=== PATIENT | male | born 1960 | race Caucasian/White ===

== ENCOUNTER 2021-07-02 11:27 | Emergency (ER) | payer BC ==
[~2021-07-02] VITALS: Ht 170.2 cm; Wt 100.0 kg
[2021-07-02] MEDS ORDERED: ALBUTEROL SULFATE 2.5 MG/3 ML NEBU. NEB ONE (12:00)
[2021-07-02] MEDS ORDERED: IV NORMAL SALINE 1000ML BAG 1,000 ML IV ONE (12:00)
[2021-07-02 12:08] LABS: BASO % 1 % (0-3); EOS % 0 % (0-3); HEMATOCRIT 48.4 % (39.0-53.0); HEMOGLOBIN 16.3 g/dL (13.0-17.5); LYMPH # 0.4 x10^3/uL (1.0-4.8); LYMPH % 7 % (24-48); MEAN CORPUSCULAR HEMOGLOBIN 31 pg (25-35); MEAN CORPUSCULAR HGB CONC 34 g/dL (31-37); MEAN CORPUSCULAR VOLUME 93 fL (79-100); MONO # 1.1 x10^3/uL (0.0-1.1); MONO % 18 % (0-9); NEUT # 4.6 x10^3/uL (1.8-7.7); NEUT % 75 % (31-73); PLATELET COUNT 155 x10^3/uL (140-400); RED BLOOD COUNT 5.24 x10^6/uL (4.30-5.70); RED CELL DISTRIBUTION WIDTH 14.1 % (11.5-14.5); WHITE BLOOD COUNT 6.1 x10^3/uL (4.0-11.0)
--- NOTE | 2021-07-02 12:11 | RAD ---
EXAM: CHEST 1 VIEW History: Cough, congestion COMPARISON: 08/24/2020 TECHNIQUE: Single portable radiograph of the chest FINDINGS: Mild cardiomegaly. Mild bibasilar lung airspace opacities likely atelectasis or infiltrate s. The costophrenic sulci are clear and well demarcated. IMPRESSION: Mild bibasilar lung airspace opacities likely atelectasis or infiltrates. Follow-up to resolution. Electronically signed by: Sander Holland MD (07/02/2021 12:09 PM) [id number]
[2021-07-02 12:13] LABS: CALCIUM 7.8 mg/dL (8.5-10.1); CREATININE 1.4 mg/dL (0.7-1.3); GFR 52.1; POTASSIUM 4.1 mmol/L (3.5-5.1)
[2021-07-02 12:18] LABS: ALBUMIN 3.6 g/dL (3.4-5.0); ALBUMIN/GLOBULIN RATIO 0.9 (1.0-1.7); TOTAL BILIRUBIN 0.5 mg/dL (0.2-1.0); TOTAL PROTEIN 7.5 g/dL (6.4-8.2)
[2021-07-02 12:20] LABS: INFLUENZA A PATIENT NEGATIVE (NEGATIVE); INFLUENZA B PATIENT NEGATIVE (NEGATIVE)
--- NOTE | 2021-07-02 12:47 | PHYS DOC ---
Past Medical History Past Medical History: Hypertension Additional Past Medical Histor: Chronic back pain Past Surgical History: Other Additional Past Surgical Histo: Back surgery Smoking Status: Current Every Day Smoker Alcohol Use: Heavy General Adult EDM: Chief Complaint: HYPERTENSION HPI: HPI: Patient is a 60 year old male with history of HTN, smoking who presents with 3 days of cough, congestion, chills, nausea, headache, mild shortness of breath. He recently returned from a camping trip in [facility]. No known sick or Covid contacts. He believes he received the [employer] vaccine. No booster. Denies chest pain. No lower extremity edema. Has had diarrhea. No bloody stools. No abdominal pain. Review of Systems: Review of Systems: Constitutional: Reports objective fever and chills Eyes: Denies change in visual acuity. [] HENT: Reports nasal congestion and cough Respiratory: Reports cough and mild shortness of breath Cardiovascular: Denies chest pain or edema. [] GI: Denies abdominal pain, nausea, vomiting, bloody stools or diarrhea. [] : Denies dysuria. [] Musculoskeletal: Reports diffuse muscle aches. Denies back pain or joint pain. [] Integument: Denies rash. [] Neurologic: Denies headache, focal weakness or sensory changes. [] Endocrine: Denies polyuria or polydipsia. [] Lymphatic: Denies swollen glands. [] Psychiatric: Denies depression or anxiety. [] Heart Score: C/O Chest Pain: No Current Medications: Current Medications Medications (Trade) Dose Ordered Sig/Chip Start Time Stop Time Status Last Admin Dose Admin Albuterol Sulfate (Ventolin Neb Soln) 2.5 mg 1X ONCE 07/02/21 12:00 07/02/21 12:01 DC Sodium Chloride 1,000 ml @ 1,000 mls/hr 1X ONCE 07/02/21 12:00 07/02/21 12:59 07/02/21 12:00 1,000 MLS/HR Allergies: Allergies: Allergies Coded Allergies Type Severity Reaction Last Updated Verified No Known Drug Allergies 07/02/21 No Physical Exam: PE: Constitutional: Appears fatigued, but no acute distress. Nontoxic-appearing. HENT: Normocephalic, atraumatic Neck: Normal range of motion, no tenderness, supple, no stridor. [] Cardiovascular:Heart rate regular rhythm, no murmur [] Lungs & Thorax: Normal work of breathing. Bilateral expiratory wheezes. Crackles. Abdomen: Bowel sounds normal, soft, no tenderness, no masses, no pulsatile masses. [] Skin: Warm, dry, no erythema, no rash. [] Back: No tenderness, no CVA tenderness. [] Extremities: No tenderness, no cyanosis, no clubbing, ROM intact, no edema. [] Neurologic: Alert and oriented X 3, normal motor function, normal sensory function, no focal deficits noted. [] Current Patient Data: Labs: Laboratory Tests Test 07/02/21 11:45 White Blood Count 6.1 x10^3/uL (4.0-11.0) Red Blood Count 5.24 x10^6/uL (4.30-5.70) Hemoglobin 16.3 g/dL (13.0-17.5) Hematocrit 48.4 % (39.0-53.0) Mean Corpuscular Volume 93 fL (79-100) Mean Corpuscular Hemoglobin 31 pg (25-35) Mean Corpuscular Hemoglobin Concent 34 g/dL (31-37) Red Cell Distribution Width 14.1 % (11.5-14.5) Platelet Count 155 x10^3/uL (140-400) Neutrophils (%) (Auto) 75 % (31-73) H Lymphocytes (%) (Auto) 7 % (24-48) L Monocytes (%) (Auto) 18 % (0-9) H Eosinophils (%) (Auto) 0 % (0-3) Basophils (%) (Auto) 1 % (0-3) Neutrophils # (Auto) 4.6 x10^3/uL (1.8-7.7) Lymphocytes # (Auto) 0.4 x10^3/uL (1.0-4.8) L Monocytes # (Auto) 1.1 x10^3/uL (0.0-1.1) Eosinophils # (Auto) 0.0 x10^3/uL (0.0-0.7) Basophils # (Auto) 0.0 x10^3/uL (0.0-0.2) Sodium Level 134 mmol/L (136-145) L Potassium Level 4.1 mmol/L (3.5-5.1) Chloride Level 95 mmol/L (98-107) L Carbon Dioxide Level 26 mmol/L (21-32) Anion Gap 13 (6-14) Blood Urea Nitrogen 24 mg/dL (8-26) Creatinine 1.4 mg/dL (0.7-1.3) H Estimated GFR (Cockcroft-Gault) 52.1 BUN/Creatinine Ratio 17 (6-20) Glucose Level 113 mg/dL (70-99) H Calcium Level 7.8 mg/dL (8.5-10.1) L Total Bilirubin 0.5 mg/dL (0.2-1.0) Aspartate Amino Transferase (AST) 74 U/L (15-37) H Alanine Aminotransferase (ALT) 106 U/L (16-63) H Alkaline Phosphatase 62 U/L (46-116) Troponin I High Sensitivity 15 ng/L (4-75) Total Protein 7.5 g/dL (6.4-8.2) Albumin 3.6 g/dL (3.4-5.0) Albumin/Globulin Ratio 0.9 (1.0-1.7) L Influenza Type A Antigen Negative (NEGATIVE) Influenza Type B Antigen Negative (NEGATIVE) SARS-CoV-2 Antigen (Rapid) Negative (NEGATIVE) Laboratory Tests 07/02/21 11:45 Laboratory Tests 07/02/21 11:45 Vital Signs: Vital Signs Date Time Temp Pulse Resp B/P (MAP) Pulse Ox O2 Delivery O2 Flow Rate FiO2 07/02/21 11:30 98.7 89 18 185/106 (132) 93 Room Air 98.7 EKG: EKG: Sinus rhythm. Rate 76. Normal axis. QTc 46. ? Minimal ST depression in lead II and aVF. No ST elevation. [] Radiology/Procedures: Radiology/Procedures: [] Impression: [facility] [address] [place], [place] [id number] IMAGING REPORT Signed PATIENT: JIMY SIMMONS ACCOUNT: [id number] : 1960 LOCATION: ER AGE: 60 SEX: M EXAM STATUS: REG ER ORD. PHYSICIAN: DANYEL CHAN MD REASON: cough, congestion, covid pui PROCEDURE: CHEST AP ONLY EXAM: CHEST 1 VIEW History: Cough, congestion COMPARISON: 08/24/2020 TECHNIQUE: Single portable radiograph of the chest FINDINGS: Mild cardiomegaly. Mild bibasilar lung airspace opacities likely atelectasis or infiltrates. The costophrenic sulci are clear and well demarcated. IMPRESSION: Mild bibasilar lung airspace opacities likely atelectasis or infiltrates. Follow-up to resolution. Electronically signed by: Sander Holland MD (07/02/2021 12:09 PM) [id number] DICTATED and SIGNED BY: SANDER HOLLAND MD DATE: 07/02/21 [id number] 0 Course & Med Decision Making: Course & Med Decision Making Pertinent Labs and Imaging studies reviewed. (See chart for details) Patient 60-year-old male with history of HTN, smoking who presents with 3 days of sinus congestion, cough, subjective fever/chills, headache, and muscle aches. On arrival is afebrile, hemodynamically stable, satting 93+ percent on room air. Normal work of breathing. Does have scattered expiratory wheezes, but refuses nebulizer treatment --stating he has an albuterol inhaler at home. Chest x-ray shows bibasilar patchy opacities concerning for pneumonia in this clinical setting. Rapid Covid and influenza are negative. Covid PCR pending. Given comorbidities will treat with monotherapy with Levaquin. Creatinine 1.4, no baseline for comparison. Does seem slightly dry on exam. 1 L of IV fluids given. Feel he should be safe for discharge with ongoing Levaquin and strict return precautions. Su Disclaimer: Su Disclaimer: This electronic medical record was generated, in whole or in part, using a voice recognition dictation system. Departure Departure Impression: Primary Impression: Pneumonia Disposition: HOME / SELF CARE / HOMELESS Condition: STABLE Referrals: Laquita LOPEZ MD (PCP) Patient Instructions: Pneumonia, Adult Additional Instructions: Your chest x-ray showed some changes concerning for pneumonia. Your Covid test so far is negative, so we will treat this with antibiotics. If your Covid PCR test returns positive you should receive a call to let you know. If you test positive for COVID please follow the following instructions. Isolation: -You will need to isolate for a minimum of 5 days from symptom onset. -At 5 days please take a rapid COVID test, if positive continue to isolate for a full 10 days duration -At the 10-day chalo (or 5-day chalo with a negative COVID test), you must also have at least 3 days of no fever/chills, and improving symptoms before you end your isolation. -If you are continuing to be symptomatic or having high fevers you need to continue your isolation until you meet the above requirements. Monitoring: -Please buy a home pulse oximeter. These can be purchased [id number] most pharmacies, or on [employer]. -Check your oxygen levels once a day. If they are persistently below 90% please return to the emergency department. -If you develop chest pain or worsening shortness of breath please return to the emergency department. For fever/body aches tylenol and ibuprofen are best used on a schedule. Please alternate between the two. -Tylenol 1000 mg every 6 hours (do not exceed 4000 mg in one day) -Ibuprofen 400-600 mg every 6 hours. Take with food. Do not take for more than 1 week. DANYEL CHAN MD Jul 02, 2021 12:47
[2021-07-02 13:37] LABS: BILIRUBIN,URINE NEGATIVE (NEG); CLARITY,URINE CLEAR; COLOR,URINE YELLOW; NITRITE,URINE NEGATIVE (NEG); PROTEIN,URINE 100 mg/dL (NEG-TRACE); UROBILINOGEN,URINE 0.2 mg/dL (0.2 mg/dL)
[2021-07-02 13:41] VITALS: BP 187/113
[2021-07-02 13:46] LABS: BACTERIA,URINE 0 /HPF (0-FEW); HYALINE CASTS, URINE FEW /HPF; RBC,URINE 0 /HPF (0-2)
--- NOTE | 2021-07-02 13:47 | EKG ---
[facility] [address] [place] [address] Test Date: 2021-07-02 Test Time: 11:42:12 Pat Name: JIMY SIMMONS Department: Room: Gender: M Project Buyer: : 1960 Requested By: DANYEL CHAN Order Number: [id number] Reading MD: Maxim Waddell Measurements Intervals [place] Rate: 76 P: 65 [place]: 174 QRS: 4 QRSD: 86 T: 43 QT: 428 QTc: 486 Interpretive Statements SINUS RHYTHM PROLONGED QT Electronically Signed On 07-03-2021 11:42:32 TOLL LINE INSPECTOR by Maxim Waddell
[2021-07-02] MEDS ORDERED: LEVO750T5 PO (14:03)
--- NOTE | 2021-07-03 11:24 | NUR ---
IP: Attempted to contact pt concerning covid results. No answer, left a voicemail to return the call. Addendum: 07/03/21 at 1137 by MEET ARGUELLO RN Pt returned the call. Informed pt of negative covid test. Pt verbalized understanding.
== END 2021-07-02 14:08 | disposition home or self-care (01) ==
LOC: ER 11:27
DX: J18.9 Pneumonia, unspecified organism (principal); I10 Essential (primary) hypertension; Z20.822 Contact with and (suspected) exposure to COVID-19; G89.29 Other chronic pain; F17.200 Nicotine dependence, unspecified, uncomplicated
CPT/HCPCS: 36415; 71045; 80053; 81001; 84484; 85025; 87428; 93005; 96360; 99285; J7030; U0003; U0005

== ENCOUNTER 2021-07-11 13:32 | Emergency (ER) | payer BC ==
[~2021-07-11] VITALS: Ht 172.7 cm; Wt 81.8 kg
[~2021-07-11 13:32] MED LIST: LEVO750T5 PO
--- NOTE | 2021-07-11 14:39 | RAD ---
EXAM: Right shoulder, 3 views. HISTORY: Pain. COMPARISON: None. FINDINGS: 3 views of the right shoulder obtained. There is no acute fracture, dislocation or subluxat ion. There is mild glenohumeral joint spurring. IMPRESSION: Mild glenohumeral osteoarthritis. No acute osseous finding. Electronically signed by: Madeline Doss MD (07/11/2021 2:36 PM) [id number]
[2021-07-11 14:56] LABS: BASO # 0.1 x10^3/uL (0.0-0.2); BASO % 1 % (0-3); EOS # 0.2 x10^3/uL (0.0-0.7); EOS % 1 % (0-3); HEMATOCRIT 49.4 % (39.0-53.0); LYMPH # 1.6 x10^3/uL (1.0-4.8); LYMPH % 12 % (24-48); MEAN CORPUSCULAR HEMOGLOBIN 32 pg (25-35); MEAN CORPUSCULAR HGB CONC 35 g/dL (31-37); MEAN CORPUSCULAR VOLUME 91 fL (79-100); MONO # 1.1 x10^3/uL (0.0-1.1); MONO % 9 % (0-9); NEUT # 10.2 x10^3/uL (1.8-7.7); NEUT % 77 % (31-73); PLATELET COUNT 221 x10^3/uL (140-400); RED CELL DISTRIBUTION WIDTH 13.9 % (11.5-14.5); WHITE BLOOD COUNT 13.2 x10^3/uL (4.0-11.0)
[2021-07-11 15:09] LABS: CALCIUM 9.2 mg/dL (8.5-10.1); GFR 76.7; POTASSIUM 3.4 mmol/L (3.5-5.1)
[2021-07-11 15:14] LABS: ALBUMIN 3.9 g/dL (3.4-5.0); ALBUMIN/GLOBULIN RATIO 0.9 (1.0-1.7); MAGNESIUM 2.2 mg/dL (1.8-2.4); TOTAL BILIRUBIN 0.9 mg/dL (0.2-1.0); TOTAL PROTEIN 8.1 g/dL (6.4-8.2)
[2021-07-11] MEDS ORDERED: IOHEXOL 350 MG/ML 100 ML VIAL. IV ONE (15:15)
[2021-07-11] MEDS ORDERED: CONTRAST GIVEN. MC PRN (15:30)
[2021-07-11] MEDS ORDERED: MORPHINE SULFATE 2 MG/ML INJ. IVP ONE (15:45)
--- NOTE | 2021-07-11 15:49 | RAD ---
Clinical Indication: Shortness of breath. PE protocol axial CTA images of the chest was performed after the administration of 100 cc Omnipaque 300. Coronal and sagittal MIP images of the pulmonary arteries are available. Comparison: Chest x-ray from 07/02/2019. Findings: The partially visualized thyroid gland is normal in appearance. The heart and great vessels are normal. There is minimal calcific atherosclerotic disease of the grea t vessels. Incidental note is made of a separate origin of the left vertebral artery from the aortic arch. No mediastinal, hilar, or axillary adenopathy is seen. No pneumothorax, effusion, focal consolidation, air space or interstitial disease is seen. The major filling defects are identified in the pulmonary arteries. The contrast bolus is somewhat in appropriately timed to evaluate the subsegmental pulmonary arteries. Liver is hypodense relative to the spleen. The bony structures are unremarkable. Impression: 1. No evidence of main or segmental pulmonary emboli. Subsegmental emboli cannot be detectability eduardo ropriate timing of the contrast bolus. 2. Unremarkable CT examination of the chest. 3. Hepatic steatosis. Exposure: One or more of the following individualized dose reduction techniques were utilized for thi s examination: 1. Automated exposure control 2. Adjustment of the mA and/or kV according to patient size 3. Use of iterative reconstruction technique Electronically signed by: David Peguero MD (07/11/2021 3:46 PM) [facility]
[2021-07-11] MEDS ORDERED: LABETALOL 20 MG/4 ML DISP.SYRIN. IVP ONE (16:00)
[2021-07-11 17:11] VITALS: BP 216/141
--- NOTE | 2021-07-11 17:31 | PHYS DOC ---
Past Medical History Past Medical History: COPD, Hypertension Additional Past Medical Histor: Chronic back pain Past Surgical History: No Surgical History Additional Past Surgical Histo: Back surgery Smoking Status: Current Every Day Smoker Alcohol Use: Heavy General Adult EDM: Chief Complaint: SHORTNESS OF BREATH HPI: HPI: Patient is a 60 year old male with history of COPD, current smoker, hypertension, presenting to the ED today complaining of shortness of breath, cough, congestion, symptoms have been going on since July 02, 2021. Patient states he was seen in the ED at that point and was diagnosed with pneumonia and put on Levaquin. He states he finished his Levaquin but his symptoms are still going on. Denies any fever. He is also complaining of 10 out of 10 right shoulder pain, pain around the right scapula and right mid back, symptoms began this morning when he woke up. He states he has a previous right shoulder injury that he has never followed up with a specialist. Patient denies any chest pain. He states his shoulder pain is worse on range of motion. He is requesting something to relieve his pain. Review of Systems: Review of Systems: Constitutional: Denies fever or chills. [] Eyes: Denies change in visual acuity. [] HENT: Denies nasal congestion or sore throat. [] Respiratory: Reports cough and shortness of breath Cardiovascular: Denies chest pain or edema. [] GI: Denies abdominal pain, nausea, vomiting, bloody stools or diarrhea. [] : Denies dysuria. [] Musculoskeletal: Reports right shoulder and right mid back Integument: Denies rash. [] Neurologic: Denies headache, focal weakness or sensory changes. [] Psychiatric: Denies depression or anxiety. [] Heart Score: C/O Chest Pain: N/A Risk Factors: Risk Factors: DM, Current or recent (<one month) smoker, HTN, HLP, family history of CAD, obesity. Risk Scores: Score 0 - 3: 2.5% MACE over next 6 weeks - Discharge Home Score 4 - 6: 20.3% MACE over next 6 weeks - Admit for Clinical Observation Score 7 - 10: 72.7% MACE over next 6 weeks - Early Invasive Strategies Current Medications: Current Medications Medications (Trade) Dose Ordered Sig/Chip Start Time Stop Time Status Last Admin Dose Admin Info (CONTRAST GIVEN -- Rx MONITORING) 1 each PRN DAILY PRN 07/11/21 15:30 07/11/21 17:27 DC Iohexol (Omnipaque 350 Mg/ml) 100 ml 1X ONCE 07/11/21 15:15 07/11/21 15:17 DC 07/11/21 15:28 100 ML Labetalol HCl (Normodyne Iv Push) 10 mg 1X ONCE 07/11/21 16:00 07/11/21 16:01 DC 07/11/21 16:43 10 MG Morphine Sulfate (Morphine Sulfate) 2 mg 1X ONCE 07/11/21 15:45 07/11/21 15:46 DC 07/11/21 15:58 2 MG Allergies: Allergies: Allergies Coded Allergies Type Severity Reaction Last Updated Verified No Known Drug Allergies 07/11/21 No Physical Exam: PE: Constitutional: Well developed, well nourished, no acute distress, non-toxic appearance. [] HENT: Normocephalic, atraumatic, bilateral external ears normal, oropharynx moist, no oral exudates, nose normal. [] Eyes: PERRLA, EOMI, conjunctiva normal, no discharge. [] Neck: Normal range of motion, no tenderness, supple, no stridor. [] Cardiovascular:Heart rate regular rhythm, no murmur [] Lungs & Thorax: Bilateral breath sounds clear to auscultation [] Abdomen: Bowel sounds normal, soft, no tenderness, no masses, no pulsatile masses. [] Skin: Warm, dry, no erythema, no rash. [] Back: No tenderness, no CVA tenderness. [] Extremities: No tenderness, no cyanosis, no clubbing, ROM intact, no edema. [] Neurologic: Alert and oriented X 3, normal motor function, normal sensory function, no focal deficits noted. [] Psychologic: Affect normal, judgement normal, mood normal. [] Current Patient Data: Labs: Laboratory Tests Test 07/11/21 14:43 White Blood Count 13.2 x10^3/uL (4.0-11.0) H Red Blood Count 5.40 x10^6/uL (4.30-5.70) Hemoglobin 17.0 g/dL (13.0-17.5) Hematocrit 49.4 % (39.0-53.0) Mean Corpuscular Volume 91 fL (79-100) Mean Corpuscular Hemoglobin 32 pg (25-35) Mean Corpuscular Hemoglobin Concent 35 g/dL (31-37) Red Cell Distribution Width 13.9 % (11.5-14.5) Platelet Count 221 x10^3/uL (140-400) Neutrophils (%) (Auto) 77 % (31-73) H Lymphocytes (%) (Auto) 12 % (24-48) L Monocytes (%) (Auto) 9 % (0-9) Eosinophils (%) (Auto) 1 % (0-3) Basophils (%) (Auto) 1 % (0-3) Neutrophils # (Auto) 10.2 x10^3/uL (1.8-7.7) H Lymphocytes # (Auto) 1.6 x10^3/uL (1.0-4.8) Monocytes # (Auto) 1.1 x10^3/uL (0.0-1.1) Eosinophils # (Auto) 0.2 x10^3/uL (0.0-0.7) Basophils # (Auto) 0.1 x10^3/uL (0.0-0.2) Sodium Level 140 mmol/L (136-145) Potassium Level 3.4 mmol/L (3.5-5.1) L Chloride Level 99 mmol/L (98-107) Carbon Dioxide Level 29 mmol/L (21-32) Anion Gap 12 (6-14) Blood Urea Nitrogen 17 mg/dL (8-26) Creatinine 1.0 mg/dL (0.7-1.3) Estimated GFR (Cockcroft-Gault) 76.7 BUN/Creatinine Ratio 17 (6-20) Glucose Level 120 mg/dL (70-99) H Calcium Level 9.2 mg/dL (8.5-10.1) Magnesium Level 2.2 mg/dL (1.8-2.4) Total Bilirubin 0.9 mg/dL (0.2-1.0) Aspartate Amino Transferase (AST) 40 U/L (15-37) H Alanine Aminotransferase (ALT) 69 U/L (16-63) H Alkaline Phosphatase 71 U/L (46-116) Troponin I High Sensitivity 14 ng/L (4-75) NF-Uif-N-Type Natriuretic Peptide 1259 pg/mL (0-124) H Total Protein 8.1 g/dL (6.4-8.2) Albumin 3.9 g/dL (3.4-5.0) Albumin/Globulin Ratio 0.9 (1.0-1.7) L Thyroid Stimulating Hormone (TSH) 1.403 uIU/mL (0.358-3.74) Laboratory Tests 07/11/21 14:43 Laboratory Tests 07/11/21 14:43 Vital Signs: Vital Signs Date Time Temp Pulse Resp B/P (MAP) Pulse Ox O2 Delivery O2 Flow Rate FiO2 07/11/21 17:11 96 216/141 (166) 98 Room Air 07/11/21 13:54 98.4 26 98.4 EKG: EKG: [] Radiology/Procedures: Radiology/Procedures: []PROCEDURE: SHOULDER 2+V RIGHT EXAM: Right shoulder, 3 views. HISTORY: Pain. COMPARISON: None. FINDINGS: 3 views of the right shoulder obtained. There is no acute fracture, dislocation or subluxation. There is mild glenohumeral joint spurring. IMPRESSION: Mild glenohumeral osteoarthritis. No acute osseous finding. Electronically signed by: Madeline Keane MD (07/11/2021 2:36 PM) [id number] DICTATED and SIGNED BY: MADELINE KEANE MD DATE: 07/11/21 [id number] PROCEDURE: CT ANGIOGRAPHY CHEST Clinical Indication: Shortness of breath. PE protocol axial CTA images of the chest was performed after the administration of 100 cc Omnipaque 300. Coronal and sagittal MIP images of the pulmonary arteries are available. Comparison: Chest x-ray from 07/02/2019. Findings: The partially visualized thyroid gland is normal in appearance. The heart and great vessels are normal. There is minimal calcific atherosclerotic disease of the great vessels. Incidental note is made of a separate origin of the left vertebral artery from the aortic arch. No mediastinal, hilar, or axillary adenopathy is seen. No pneumothorax, effusion, focal consolidation, air space or interstitial disease is seen. The major filling defects are identified in the pulmonary arteries. The contrast bolus is somewhat inappropriately timed to evaluate the subsegmental pulmonary arteries. Liver is hypodense relative to the spleen. The bony structures are unremarkable. Impression: 1. No evidence of main or segmental pulmonary emboli. Subsegmental emboli cannot be detectability appropriate timing of the contrast bolus. 2. Unremarkable CT examination of the chest. 3. Hepatic steatosis. Exposure: One or more of the following individualized dose reduction techniques were utilized for this examination: 1. Automated exposure control 2. Adjustment of the mA and/or kV according to patient size 3. Use of iterative reconstruction technique Electronically signed by: David Peguero MD (07/11/2021 3:46 PM) [facility] DICTATED and SIGNED BY: DAVID PEGUERO MD DATE: 07/11/21 [id number] Course & Med Decision Making: Course & Med Decision Making Pertinent Labs and Imaging studies reviewed. (See chart for details) This is a 60-year-old male patient presented to the ED today complaining of cough, shortness of breath, congestion, symptoms have been going on since July 03, 2021, he was diagnosed with pneumonia on that day and sent home on Levaquin which he completed. He states symptoms are not improving. Also compl aining of right shoulder pain and right mid back pain that began today. Right shoulder x-rays were noted for DJD of the right glomerular CTA chest was negative for any acute findings CBC with a WBC of 13.2, CMP with AST of 40, ALT of 69, BNP 1259. Vitals on arrival to the ED temperature 98.4, heart rate 112, respiration 20 on room air, O2 sats 93 to 94%, blood pressure 200/136, patient stated he has history of hypertension and has been out of some of his blood pressure medicines. His blood pressure went up to 236/146 heart rate of 95, labetalol was given to patient Patient eloped from the ED Nursing staff report patient has been complaining about multiple things including blood pressure cuff, O2 sat sitting on his finger now he cannot use his Phone. Dragon Disclaimer: [employer] Disclaimer: This electronic medical record was generated, in whole or in part, using a voice recognition dictation system. Departure Departure Impression: Primary Impression: Shoulder pain Qualified Codes: M25.511 - Pain in right shoulder Additional Impressions: Accelerated hypertension Shortness of breath Smoker Disposition: LEFT AGAINST MEDICAL ADVICE Condition: STABLE Referrals: Laquita LOPEZ MD (PCP) ALYSIA LLAMAS APRN Jul 11, 2021 17:31
== END 2021-07-11 17:27 | disposition home or self-care (01) ==
LOC: ER 13:32
DX: M25.511 Pain in right shoulder (principal); R06.02 Shortness of breath; G89.29 Other chronic pain; I10 Essential (primary) hypertension; J44.9 Chronic obstructive pulmonary disease, unspecified; F17.200 Nicotine dependence, unspecified, uncomplicated
CPT/HCPCS: 36415; 71275; 73030; 80053; 83735; 83880; 84443; 84484; 85025; 96374; 96375; 99285; J2270; J3490; Q9967

== ENCOUNTER 2021-07-18 15:16 | Inpatient (IN) | payer BC ==
[~2021-07-18] VITALS: Ht 170.2 cm; Wt 87.8 kg
[2021-07-18] MEDS ORDERED: LABETALOL 20 MG/4 ML DISP.SYRIN. IVP ONE ×2 (16:00→17:30)
[2021-07-18] MEDS ORDERED: IV NORMAL SALINE 1000ML BAG 1,000 ML IV ONE (16:00)
[2021-07-18 16:23] LABS: BASO % 0 % (0-3); EOS % 0 % (0-3); HEMATOCRIT 49.9 % (39.0-53.0); HEMOGLOBIN 17.1 g/dL (13.0-17.5); LYMPH # 0.2 x10^3/uL (1.0-4.8); LYMPH % 2 % (24-48); MEAN CORPUSCULAR HEMOGLOBIN 32 pg (25-35); MEAN CORPUSCULAR HGB CONC 34 g/dL (31-37); MEAN CORPUSCULAR VOLUME 92 fL (79-100); MONO # 0.2 x10^3/uL (0.0-1.1); MONO % 2 % (0-9); NEUT # 10.3 x10^3/uL (1.8-7.7); NEUT % 96 % (31-73); PLATELET COUNT 218 x10^3/uL (140-400); RED BLOOD COUNT 5.42 x10^6/uL (4.30-5.70); WHITE BLOOD COUNT 10.7 x10^3/uL (4.0-11.0)
--- NOTE | 2021-07-18 16:25 | PHYS DOC ---
Past Medical History Past Medical History: COPD, Hypertension Additional Past Medical Histor: Chronic back pain Past Surgical History: Other Additional Past Surgical Histo: Back surgery Smoking Status: Current Every Day Smoker Additional Information: 1 ppd x 40 years Alcohol Use: Heavy General Adult EDM: Chief Complaint: NAUSEA/VOMITING/DIARRHEA HPI: HPI: Patient is a 60 year old M who presents with right shoulder pain. Patient was recently seen in the ED on 07/02 for pneumonia and put on Levaquin. He was in the ED again on 07/11 for ongoing shortness of breath, cough, and congestion with new complaint of 10/10 Right shoulder pain. Chart review of previous ED visits show that patient BP was in SBP 200-230s and DBP 130-1240s and was given labetalol. Patient reported running out of anti-hypertensive medications. Patient eloped from ED on 07/11. Today, patient still complains of ongoing productive cough and shortness of breath. Patient also complains of headache and seeing spots of light. He denies blurred vision. Patient also reported previous episode of nausea and vomiting. Presently he does not have nausea or vomiting. Patient also denies chest pain and abdominal pain. Patient also reports ongoing right shoulder pain. Review of Systems: Review of Systems: Constitutional: Denies fever or chills. Eyes: Denies redness or eye pain. reports seeing spots of light. HENT: Denies nasal congestion or sore throat. Reports headache. Respiratory: Denies cough or shortness of breath. Cardiovascular: Denies chest pain or palpitations. GI: Denies abdominal pain, nausea, or vomiting. : Denies dysuria or hematuria. Musculoskeletal: Denies back pain or joint pain. Reports right shoulder pain that radiates to the neck. Integument: Denies rash or skin lesions. Neurologic: Denies headache, focal weakness or sensory changes. Complete systems were reviewed and found to be within normal limits, except as documented in this note. Heart Score: C/O Chest Pain: No Current Medications: Current Medications Medications (Trade) Dose Ordered Sig/Chip Start Time Stop Time Status Last Admin Dose Admin Labetalol HCl (Normodyne Iv Push) 10 mg 1X ONCE 07/18/21 16:00 07/18/21 16:01 DC Sodium Chloride 1,000 ml @ 1,000 mls/hr 1X ONCE 07/18/21 16:00 07/18/21 16:59 Allergies: Allergies: Allergies Coded Allergies Type Severity Reaction Last Updated Verified No Known Drug Allergies 07/11/21 No Physical Exam: PE: Constitutional: Well developed, well nourished, moderate distress, non-toxic appearance. HENT: Normocephalic, atraumatic. Eyes: PERRL, EOMI, conjunctiva normal, no discharge. Neck: Normal range of motion, no tenderness, supple. Lungs & Thorax: No respiratory distress, equal chest rise and fall. Abdomen: Soft, no tenderness. Skin: Warm, dry, no erythema, no rash. Back: No tenderness, no CVA tenderness. Extremities: No tenderness, ROM intact, no edema. Unable to tolerate shoulder exam. Neurologic: Alert and oriented X 3, normal motor function, normal sensory function, no focal deficits noted. Psychologic: Affect normal, judgment normal. Current Patient Data: Vital Signs: Vital Signs Date Time Temp Pulse Resp B/P (MAP) Pulse Ox O2 Delivery O2 Flow Rate FiO2 07/18/21 15:29 99.2 118 22 202/132 (155) 97 Room Air 99.2 EKG: EKG: @1542: NSR @ 115 bpm. QRS: 86 ms. QT/QTc: 346/481 ms. @1605: NSR @ 50 bpm. QRS: 94 ms. QT/QTc: 420/382 ms. Radiology/Procedures: Radiology/Procedures: PROCEDURE: CT HEAD WO CONTRAST EXAMINATION: CT HEAD/BRAIN WO CLINICAL HISTORY: Headache, hypertension. TECHNIQUE: Serial axial images without IV contrast were obtained from the vertex to the foramen magnum. CT Dose Reduction Employed: One or more of the following individualized dose reduction techniques were utilized for this examination: 1. Automated exposure control 2. Adjustment of the mA and/or kV according to patient size 3. Use of iterative reconstruction technique. COMPARISON: None FINDINGS: Acute Change: No evidence of an acute infarct or other acute parenchymal pro cess. Hemorrhage: No evidence of acute intracranial hemorrhage. Mass Lesion/Mass Effect: No evidence of intracranial mass or extraaxial fluid collection. No significant mass effect. Chronic Change: Scattered patchy foci of hypoattenuation in the supratentorial white matter, nonspecific but likely represents mild microvascular ischemia. Atherosclerotic calcification of the intracranial portion of the bilateral internal carotid arteries. Parenchyma: Mild to moderate generalized volume loss. Ventricles: Ventricular enlargement concordant with degree of parenchymal volume loss. Paranasal Sinuses and Skull Base: Paranasal sinus postoperative changes with mild secretions in the ethmoid and right maxillary sinuses. Visualized skull base and soft tissues unremarkable. IMPRESSION: No evidence of acute intracranial abnormality. Electronically signed by: Eitan Banegas DO (07/18/2021 5:22 PM) [id number] Course & Med Decision Making: Course & Med Decision Making Pertinent Labs and Imaging studies reviewed. (See chart for details) Patient presents with n/v/headache. Patient also has ongoing productive cough and shortness of breath since 07/02/2021 when he was diagnosed with pneumonia and subsequently completed course of Levaquin. On arrival to ED, BP was 213/133 and HR of 116. Creatinine of 1.2 and BUN of 21. Creatinine kinase wnl. Troponin negative x1. BNP [pending]. Head CT w/o contrast shows no acute intracranial abnormality. Patient was given 1 L bolus NS, ketorolac x1, and labetalol x2. Repeat blood pressure reading SBP 200s and DBP 130s. Patient requiring admission for further evaluation and treatment. Discussed with Dr. Marlow (hospitalist) who is in agreement with admission. Discussed findings and plan with patient, who acknowledges understanding and agreement. Su Disclaimer: Su Disclaimer: This electronic medical record was generated, in whole or in part, using a voice recognition dictation system. Departure Departure Impression: Primary Impression: Hypertensive urgency Additional Impression: Intractable nausea and vomiting Disposition: ADMITTED INPATIENT Admitting Physician: HUMA (Ele) Condition: STABLE Referrals: Laquita LOPEZ MD (PCP) Critical Care Time Critical care time was 30 minutes which includes time at bedside, spent in discussion of patient's care with specialists and/or family members, with interpretation of laboratory and/or radiological studies and is exclusive of procedures. ANDREINA LERMA DO Jul 18, 2021 16:25
[2021-07-18 16:44] LABS: CALCIUM 8.7 mg/dL (8.5-10.1); CREATININE 1.2 mg/dL (0.7-1.3); GFR 62.2; POTASSIUM 3.6 mmol/L (3.5-5.1)
[2021-07-18] MEDS ORDERED: KETOROLAC 15 MG/ML VIAL. IVP ONE (16:45)
[2021-07-18 16:51] LABS: CREATINE KINASE 58 U/L (39-308)
[2021-07-18 16:53] LABS: ALBUMIN 3.9 g/dL (3.4-5.0); ALBUMIN/GLOBULIN RATIO 0.8 (1.0-1.7); MAGNESIUM 1.9 mg/dL (1.8-2.4); TOTAL BILIRUBIN 0.7 mg/dL (0.2-1.0); TOTAL PROTEIN 8.7 g/dL (6.4-8.2)
--- NOTE | 2021-07-18 17:24 | RAD ---
EXAMINATION: CT HEAD/BRAIN WO CLINICAL HISTORY: Headache, hypertension. TECHNIQUE: Serial axial images without IV contrast were obtained from the vertex to the foramen magnu m. CT Dose Reduction Employed: One or more of the following individualized dose reduction techniques wer e utilized for this examination: 1. Automated exposure control 2. Adjustment of the mA and/or kV ac cording to patient size 3. Use of iterative reconstruction technique. COMPARISON: None FINDINGS: Acute Change: No evidence of an acute infarct or other acute parenchymal process. Hemorrhage: No evidence of acute intracranial hemorrhage. Mass Lesion/Mass Effect: No evidence of intracranial mass or extraaxial fluid collection. No signific ant mass effect. Chronic Change: Scattered patchy foci of hypoattenuation in the supratentorial white matter, nonspeci fic but likely represents mild microvascular ischemia. Atherosclerotic calcification of the intracran ial portion of the bilateral internal carotid arteries. Parenchyma: Mild to moderate generalized volume loss. Ventricles: Ventricular enlargement concordant with degree of parenchymal volume loss. Paranasal Sinuses and Skull Base: Paranasal sinus postoperative changes with mild secretions in the e thmoid and right maxillary sinuses. Visualized skull base and soft tissues unremarkable. IMPRESSION: No evidence of acute intracranial abnormality. Electronically signed by: Eitan Banegas DO (07/18/2021 5:22 PM) [id number]
[2021-07-18] MEDS ORDERED: ONDANSETRON PF 4 MG/2 ML VIAL. ONE (17:38)
[2021-07-18] MEDS ORDERED: ONDANSETRON PF 4 MG/2 ML VIAL. IVP ONE (17:45)
[2021-07-18] MEDS ORDERED: ONDANSETRON PF 4 MG/2 ML VIAL. IVP PRN (18:15)
[2021-07-18] MEDS ORDERED: ACETAMINOPHEN 500 MG TABLET PO ONE (20:15)
[2021-07-18 20:45] VITALS: BP 156/102
[2021-07-18 20:48] LABS: INFLUENZA A PATIENT NEGATIVE (NEGATIVE); INFLUENZA B PATIENT NEGATIVE (NEGATIVE)
[2021-07-18] MEDS ORDERED: AMLO-187 PO (22:38)
[2021-07-18] MEDS ORDERED: ALBU2.5V5 NEB (22:38)
[2021-07-18] MEDS ORDERED: HYDR-2767 PO (22:38)
[2021-07-18] MEDS ORDERED: FLUT1BLS2 HHN (22:38)
[2021-07-18] MEDS ORDERED: VORT10TA PO (22:38)
[2021-07-18] MEDS ORDERED: BENA40TA74 PO (22:38)
[2021-07-18] MEDS: LABETALOL 20 MG/4 ML DISP.SYRIN. IVP PRN (22:51)
[2021-07-18 23:16] VITALS: BP 171/106
--- NOTE | 2021-07-19 00:14 | HP ---
DATE OF SERVICE: 07/18/2021 ADMIT DATE: 07/18/2021 CHIEF COMPLAINT: Nausea, vomiting, diarrhea. HISTORY OF PRESENT ILLNESS: The patient is a pleasant 60-year-old male who presented to the ER with nausea, vomiting, diarrhea. He also had some shoulder pain, was in the ER, they noticed that his pressure was in the 200s. He has recently been treated for pneumonia on 07/02. He also seems to have a slight acute on chronic cough. He also had a slight temperature while here in the ER. I discussed the case with ER physician. We are going to admit the patient and get his pressures down and rule out COVID-19. PAST MEDICAL HISTORY: Noncompliance, COPD, hypertension, tobacco abuse, chronic back pain, back surgery. ALLERGIES: None. FAMILY HISTORY: Diabetes. SOCIAL HISTORY: He drinks socially. He smokes heavily. He has a girlfriend. He is here and seems to be good support for him. Her name is Jeannette. MEDICATIONS: Reviewed. Please refer to the MRAD. REVIEW OF SYSTEMS: GENERAL: No history of weight change, weakness or fevers. SKIN: No bruising, hair changes or rashes. EYES: No blurred, double or loss of vision. NOSE AND THROAT: No history of nosebleeds, hoarseness or sore throat. HEART: No history of palpitations, chest pain or shortness of breath on exertion. LUNGS: Denies cough, hemoptysis, wheezing or shortness of breath. GASTROINTESTINAL: Denies changes in appetite, nausea, vomiting, diarrhea or constipation. GENITOURINARY: No history of frequency, urgency, hesitancy or nocturia. NEUROLOGIC: Denies history of numbness, tingling, tremor or weakness. PSYCHIATRIC: No history of panic, anxiety or depression. ENDOCRINE: No history of heat or cold intolerance, polyuria or polydipsia. EXTREMITIES: Denies muscle weakness, joint pain, pain on walking or stiffness. PHYSICAL EXAMINATION: VITAL SIGNS: His blood pressure was 211/115. GENERAL: No apparent distress. Alert and oriented. HEENT: Normal cephalic atraumatic, external auditory canals are patent EYES: Extraocular muscles are intact, pupils are equally round and reactive to light and accommodation MUSKULOSKELETAL: Well developed, well nourished, good range of motion ENDOCRINE: No thyromegaly was palpated LYMPHATICS: No cervical chain or axillary nodes were noted HEMATOPOIETIC: No bruising NECK: Supple, no JVD, no thyromegaly was noted. LUNGS: Clear to auscultation in all lung lars[place] without rhonchi or wheezing. HEART: RRR, S1, S2 present. Peripheral pulses intact, no obvious murmurs were noted. ABDOMEN: Soft, nontender. Positive bowel sounds no organomegaly, normal bowel sounds. EXTREMITIES: Without any cyanosis, clubbing, or edema. Pedal pulses intact, Homans sign is negative. NEUROLOGIC: Normal speech, normal tone. A and O x3, moves all extremities, no obvious focal deficits. PSYCHIATRIC: Normal affect, normal mood. Stable. SKIN: No ulcerations or rashes, good skin turgor, no jaundice. VASCULAR: Good capillary refill, neurovascular bundle appears to be intact. LABORATORY DATA: Hematology is normal. Electrolytes are normal. COVID testing is negative. ASSESSMENT AND PLAN: Hypertensive urgency. The patient will be admitted. We will use p.r.n. labetalol, start his home meds. Deep venous thrombosis prophylaxis. Full code. Hope to discharge in the morning if stable. MARIBETH/PEARL/JUAN DR: MARIBETH/edwina TID: [id number]
[2021-07-19] MEDS ORDERED: ACETAMINOPHEN 500 MG TABLET PO PRN (01:30)
[2021-07-19] MEDS ORDERED: ALBUTEROL SULFATE 2.5 MG/3 ML NEBU. NEB PRN (01:30)
[2021-07-19] MEDS ORDERED: HYDROcodone/APAP 10/325 1 TAB TABLET PO PRN (01:30)
[2021-07-19 01:55] VITALS: BP 165/99
[2021-07-19 03:45] VITALS: BP 158/110
--- NOTE | 2021-07-19 05:50 | EKG ---
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
[2021-07-19 07:00] VITALS: BP 180/122
[2021-07-19] MEDS ORDERED: ALBUTEROL SULFATE 2.5 MG/3 ML NEBU. NEB SCH (08:00)
[2021-07-19] MEDS ORDERED: BUDESONIDE 0.5 MG/2 ML NEBU. NEB SCH (08:00)
[2021-07-19] MEDS ORDERED: NON FORMULARY ITEM (Vortioxetine Hydrobromide (Trintellix) 1 TAB) PO SCH (09:00)
[2021-07-19] MEDS ORDERED: LISINOPRIL 20 MG TABLET PO SCH (09:00)
[2021-07-19] MEDS ORDERED: METO-239 PO (09:48)
--- NOTE | 2021-07-19 09:53 | PDOC3 ---
[facility]-Discharge Summary Date of Admission: Date of Admission: Jul 18, 2021 Date of Discharge: Date of Discharge: Jul 19, 2021 Admission Diagnosis: Problems: (1) Hypertensive urgency Hospital Course: Hospital Course: The patient is a pleasant 60-year-old male who presented to the ER with nausea, vomiting, diarrhea. He also had some shoulder pain, was in the ER, they noticed that his pressure was in the 200s. He has recently been treated for pneumonia on 07/02. He also seems to have a slight acute on chronic cough. He also had a slight temperature while here in the ER. I discussed the case with ER physician. We are going to admit the patient and get his pressures down and rule out COVID-19. 07/19 Patient evaluate examined at bedside. Symptomatically feeling much better overall. Blood pressure little elevated still we will add on Toprol-XL to blood pressure regimen. Will discharge after that dose pending he does okay. Greater than 30 minutes spent on discharge. 19 minutes advance care plan. Disposition: Disposition/Orders: D/C to Home Activity: Activity: Resume previous activity Diet: Diet: Cardiac Medications: Home Meds Active Scripts Metoprolol Succinate (METOPROLOL SUCCINATE ( XL )) 25 Mg Tab.er.24h, 25 MG PO DA CL for htn for 30 Days, #30 TAB.SR Prov:TASIA GRANADO MD 07/19/21 Reported Medications Amlodipine Besylate (AMLODIPINE BESYLATE) 10 Mg Tablet, 1 TAB PO DAILY for hypertension 07/18/21 Albuterol Sulfate (ALBUTEROL SULFATE NEB SOLN) 2.5 Mg/3 Ml Vial.neb, 1 INH NEB PRN QID for asthma 07/18/21 Fluticasone/Vilanterol (Breo Ellipta 200-25 Mcg INH) 1 Each Blst.w.dev, 1 INHALER HHN DAILY for asthma 07/18/21 Vortioxetine Hydrobromide (TRINTELLIX) 10 Mg Tablet, 1 TAB PO DAILY for depression 07/18/21 Hydrocodone/Acetaminophen (Hydrocodone-Acetamin 10-325 mg) 1 Each Tablet, 2 TAB PO PRN Q6HRS for pain 07/18/21 Benazepril Hcl (BENAZEPRIL HCL) 40 Mg Tablet, 1 TAB PO DAILY for hypertension 07/18/21 Scheduled Albuterol Sulfate (Albuterol Sulfate Neb Soln), 1 INH NEB PRN QID, (Reported) Amlodipine Besylate (Amlodipine Besylate), 1 TAB PO DAILY, (Reported) Benazepril Hcl (Benazepril Hcl), 1 TAB PO DAILY, (Reported) Fluticasone/Vilanterol (Breo Ellipta 200-25 Mcg INH), 1 INHALER HHN DAILY, (Reported) Hydrocodone/Acetaminophen (Hydrocodone-Acetamin 10-325 mg), 2 TAB PO PRN Q6HRS, (Reported) Metoprolol Succinate (Metoprolol Succinate ( Xl )), 25 MG PO DAILY Vortioxetine Hydrobromide (Trintellix), 1 TAB PO DAILY, (Reported) Justicifation of Admission Dx: Justifications for Admission: Justification of Admission Dx: Yes (hypertensive urgency) TASIA GRANADO MD Jul 19, 2021 09:53
[2021-07-19] MEDS ORDERED: METOPROLOL SUCC 24HR ER 25 MG TAB.ER.24H. PO SCH (10:00)
--- NOTE | 2021-07-19 10:36 | NUR ---
SW following. Discussed with RN, pt from home, room air, cardiac diet, independent, COVID-19 negative. Discharge order for home with self care. RN advised no SW needs.
[2021-07-19 10:52] VITALS: BP 183/108
[2021-07-19] MEDS: LABETALOL 20 MG/4 ML DISP.SYRIN. IVP PRN (10:52)
--- NOTE | 2021-07-19 11:31 | NUR ---
Discharge Note: PT DISCHARGED HOME WITH SELF CARE. PT LEFT FACILITY VIA PRIVATE VEHICLE WITH FRIEND AT 1120. PT STABLE AND ALERT UPON DISCHARGE. PT PIV REMOVED FROM R AC WITHOUT COMPLICATIONS, BANDAGE APPLIED. PT EDUCATED ABOUT DISCHARGE INSTRUCTIONS, DISCHARGE MEDICATIONS, AND FOLLOW-UP CARE INSTRUCTIONS. PT EDUCATED TO WATCH BP CLOSELY WITH NEW BP MEDICATIONS GETTING STARTED. NO CONCERNS VOICED AT THIS TIME. PT LEFT WITH ALL PERSONAL BELONGINGS. FAIZA SIMMONS Discharge instructions and discharge home medications reviewed with Patient and a copy given. All questions have been answered and understanding verbalized.
== END 2021-07-19 11:20 | disposition home or self-care (01) | DRG 305 ==
LOC: ER 15:16 → ED HOLD 18:00 → 5 NORTH 20:43
PROVIDERS: ADMIT Internal Medicine; ATTEND Internal Medicine
DX: I16.0 Hypertensive urgency (principal); J44.9 Chronic obstructive pulmonary disease, unspecified; G89.29 Other chronic pain; M54.9 Dorsalgia, unspecified; Z20.822 Contact with and (suspected) exposure to COVID-19; M25.511 Pain in right shoulder; Z87.01 Personal history of pneumonia (recurrent); F17.200 Nicotine dependence, unspecified, uncomplicated; Z83.3 Family history of diabetes mellitus; Z91.19 Patient's noncompliance with other medical treatment and regimen
CPT/HCPCS: 36415; 70450; 80053; 82553; 83735; 83880; 84484; 85025; 87428; 93005; 96361; 96374; 96375; 96376; J1885; J2405; J3490; J7030; U0003; 99291-25; G0378